=== PATIENT | male | born 1955 | race African-American/Black ===

== ENCOUNTER 2017-06-21 09:25 | Emergency (ER) | payer MEDICAID, OTHER ==
[2017-06-21 09:34] VITALS: BP 127/87
--- NOTE | 2017-06-21 09:55 | ER Document Report ---
HPI - HPI Patient complains to provider of: needs PPD read and cxr report Onset: Other - 2 days ago Pain Level: 0 Context: 61 yo male in jail had ppd and cxr 2 days ago. Was exposed, roomate had TB. Associated Symptoms: None Exacerbated by: Denies Relieved by: Denies - ROS ROS below otherwise negative: Yes Systems Reviewed and Negative: Yes All other systems reviewed and negative Past Medical History - General Information source: Friend - care give from jail Cannot obtain history due to: Mentally challenged - Social History Smoking Status: Never Smoker Frequency of alcohol use: None Drug Abuse: None Lives with: Other - jail Family History: Other - Unable to review - Past Medical History Cardiac Medical History: Reports: Hx Hypertension Surgical Hx: Negative Vertical Provider Document - CONSTITUTIONAL Agree With Documented VS: Yes Exam Limitations: No Limitations General Appearance: No Apparent Distress - INFECTION CONTROL TRAVEL OUTSIDE OF THE [place] IN LAST 30 DAYS: No - HEENT HEENT: Normocephalic - NECK Neck: Supple - RESPIRATORY O2 Sat by Pulse Oximetry: 97 - NEURO Level of Consciousness: Awake, Alert - DERM Notes: right volar forearm PPD test negative, no induration. Course - Re-evaluation Re-evalutation: 06/21/17 10:00 Outpatient x-ray done on June 19, 2017 at 2:14 PM is negative according to Dr. caputo the radiologist. Copy given to the group fitness instructor. 06/21/17 10:16 Patient was registered with the second medical record number and have asked patient access to emergent 2 medical record numbers. The chest x-ray was found under medical record [id number]., Today's visit is medical record [id number]. The V number for the visit on the was [id number]. - Vital Signs Vital signs: Temp Pulse Resp BP Pulse Ox 98.1 F 68 18 127/87 H 97 06/21/17 09:41 06/21/17 09:33 06/21/17 09:33 06/21/17 09:33 06/21/17 09:33 Discharge - Discharge Clinical Impression: Negative PPD and chest x-ray Condition: Good Disposition: HOME, SELF-CARE Additional Instructions: see your doctor for follow up Forms: Signature Page
== END 2017-06-21 10:40 | disposition home or self-care (01) ==
LOC: ER 09:25
DX: Z11.1 Encounter for screening for respiratory tuberculosis (principal); Z20.1 Contact with and (suspected) exposure to tuberculosis; I10 Essential (primary) hypertension

== ENCOUNTER → 2018-04-11 | Outpatient (CLI) | payer MEDICAID ==
--- NOTE | 2018-04-11 10:19 | RADIOLOGY REPORT (SQ) ---
EXAM DESCRIPTION: U/S ABDOMEN LIMITED W/O DOP COMPLETED DATE/TIME: 04/11/2018 10:08 am REASON FOR STUDY: K74.60 UNSPECIFIED CIRRHOSIS OF LIVER R74.8 ABNORMAL LEVELS OF OTHER SERUM K74.60 UNSPECIFIED CIRRHOSIS OF LIVER R74.8 ABNORMAL LEVELS OF OTHER SERUM ENZYMES COMPARISON: None. TECHNIQUE: Dynamic and static grayscale images acquired of the abdomen and recorded on PACS. Additio nal selected color Doppler and spectral images recorded. LIMITATIONS: None. FINDINGS: PANCREAS: No masses. Visualized pancreatic duct normal caliber. LIVER: No masses. Echotexture normal. LIVER VASCULATURE: Normal directional flow of the main portal vein and hepatic veins. GALLBLADDER: No stones. Normal wall thickness. No pericholecystic fluid. ULTRASOUND-DETECTED AQUINO'S SIGN: Negative. INTRAHEPATIC DUCTS AND COMMON DUCT: CBD and intrahepatic ducts normal caliber. No filling defects.INF ERIOR VENA CAVA: Normal flow. AORTA: No aneurysm. RIGHT KIDNEY: Normal size. Normal echogenicity. No solid or suspicious masses. No hydronephrosis. No calcifications. PERITONEAL AND RIGHT PLEURAL SPACE: No ascites or effusions. OTHER: No other significant findings. IMPRESSION: NORMAL RIGHT UPPER QUADRANT ULTRASOUND. TECHNICAL DOCUMENTATION: JOB ID: [id number] [employer]- All Rights Reserved Reading location - IP/workstation name: [email or web address]
== END ==
LOC: RAD 10:18
PROVIDERS: ATTEND Internal Medicine Gastroenterology
DX: K74.60 Unspecified cirrhosis of liver (principal); R74.8 Abnormal levels of other serum enzymes
CPT/HCPCS: 76705

== ENCOUNTER 2018-08-25 15:57 | Emergency (ER) | payer MEDICAID ==
[2018-08-25] MEDS ORDERED: NORMAL SALINE 1000 ML 1,000 ML IV ONE (17:50)
[2018-08-25] MEDS ORDERED: ONDANSETRON HCL INJ/PF 4 MG/2 ML SDV IV ONE (17:50)
--- NOTE | 2018-08-25 17:51 | ER Document Report ---
ED Medical Screen (RME) - General Chief Complaint: Nausea/Vomiting Stated Complaint: VOMITING/ABDOMINAL PAIN Primary Care Provider: PERICO MCRAE MD [Primary Care Provider] - Follow up as needed TRAVEL OUTSIDE OF THE [place] IN LAST 30 DAYS: No - HPI Notes: 08/25/18 17:49 Patient is a 62-year-old male with an extensive medical history including mental health disorder, dementia, hypertension, cirrhosis, hepatitis C who presents with caregiver complaining of abdominal distention and nausea/vomiting over the past 24 hours. Caregiver is unaware of the last bowel movement, but it could have been within the last couple days. Denies HADLEY, fever, neck pain, URI, CP, SOB, or rash. I have treated and performed a rapid initial assessment of this patient. A comprehensive ED assessment and evaluation of the patient, analysis of test results and completion of medical decision making process will be conducted by additional ED providers. PHYSICAL EXAMINATION: GENERAL: Well-appearing, well-nourished and in no acute distress. LUNGS: Breath sounds clear to auscultation bilaterally and equal. No wheezes rales or rhonchi. HEART: Regular rate and rhythm without murmurs, rubs, gallops. ABDOMEN: Soft, + mild distention. No guarding, no rebound. Normal bowel sounds present. No CVA tenderness bilaterally. (cannot elicit thorough abd exam w/o table, however). - Related Data Allergies/Adverse Reactions: valsartan [From Diovan] Allergy (Verified 08/25/18 16:05) Past Medical History - Social History Frequency of alcohol use: None Drug Abuse: None - Past Medical History Cardiac Medical History: Reports: Hx Hypertension Renal/ Medical History: Denies: Hx Peritoneal Dialysis GI Medical History: Reports: Hx Gastroesophageal Reflux Disease Musculoskeltal Medical History: Reports Hx Arthritis Psychiatric Medical History: Reports: Hx Bipolar Disorder, Hx Depression Physical Exam - Vital signs Vitals: Temp Pulse Resp BP Pulse Ox 98.4 F 96 14 121/73 95 08/25/18 16:26 08/25/18 16:26 08/25/18 16:26 08/25/18 16:26 08/25/18 16:26 Course - Vital Signs Vital signs: Temp Pulse Resp BP Pulse Ox 98.4 F 96 14 121/73 95 08/25/18 16:26 08/25/18 16:26 08/25/18 16:26 08/25/18 16:26 08/25/18 16:26 Doctor's Discharge - Discharge Referrals: PERICO MCRAE MD [Primary Care Provider] - Follow up as needed
--- NOTE | 2018-08-25 18:22 | RADIOLOGY REPORT (SQ) ---
EXAM DESCRIPTION: ACUTE ABDOMEN SERIES COMPLETED DATE/TIME: 08/25/2018 6:06 pm REASON FOR STUDY: n/v, abd distention COMPARISON: None. NUMBER OF VIEWS: Three views. TECHNIQUE: Frontal chest, supine abdomen and upright/decubitus abdomen radiographic images acquired. LIMITATIONS: None. FINDINGS: CHEST: Lungs clear of infiltrates. FREE AIR: None. No abnormal gas collections. BOWEL GAS PATTERN: No definite evidence of pathologically dilated loops of bowel. There are multiple gas fluid levels throughout the presumed colonic loops involving the transverse colon and splenic an d hepatic flexures. CALCIFICATIONS: No suspicious calcifications. HARDWARE: None in the abdomen. SOFT TISSUES: No gross mass or suggestion of organomegaly. BONES: No acute fracture. No worrisome bone lesions. OTHER: No other significant finding. IMPRESSION: Multiple gas fluid levels throughout the ascending, transverse and descending colon whic h can be seen with diarrheal illness or cathartic use. No definite evidence of intestinal obstructio n. TECHNICAL DOCUMENTATION: JOB ID: [id number] [employer]- All Rights Reserved Reading location - IP/workstation name: [email or web address]
[2018-08-25 19:07] LABS: APPEARANCE,URINE CLEAR; BILIRUBIN,URINE NEGATIVE (NEGATIVE); COLOR,URINE YELLOW; GLUCOSE, URINE NEGATIVE (NEGATIVE); KETONES,URINE NEGATIVE (NEGATIVE); LEUKOCYTE ESTERASE,URINE NEGATIVE (NEGATIVE); NITRITE,URINE NEGATIVE (NEGATIVE); PROTEIN,URINE 30 mg/dL (NEGATIVE); URINE SPECIFIC GRAVITY 1.025
[2018-08-25 19:12] LABS: ABSOLUTE LYMPHOCYTES (AUTO) 0.4 10^3/uL (0.5-4.7); ABSOLUTE MONOCYTES (AUTO) 0.6 10^3/uL (0.1-1.4); ABSOLUTE NEUT (AUTO) 4.7 10^3/uL (1.7-8.2); BASOPHILS % (AUTO) 0.2 % (0-2); EOSINOPHILS % (AUTO) 0.1 % (0-6); HEMATOCRIT 46.6 % (37.9-51.0); HEMOGLOBIN 15.6 g/dL (13.5-17.0); LYMPHOCYTES % (AUTO) 7.6 % (13-45); MEAN CORPUSCULAR HEMOGLOBIN 27.4 pg (27.0-33.4); MEAN CORPUSCULAR HGB CONC 33.5 g/dL (32.0-36.0); MEAN CORPUSCULAR VOLUME 82 fl (80-97); MONOCYTES % (AUTO) 10.4 % (3-13); PLATELET COUNT 107 10^3/uL (150-450); RED BLOOD COUNT 5.71 10^6/uL (4.35-5.55); RED CELL DISTRIBUTION WIDTH 14.7 % (11.5-14.0); SEGMENTED NEUTROPHILS % (AUTO) 81.7 % (42-78); TOTAL CELLS COUNTED % (AUTO) 100 %; WHITE BLOOD COUNT 5.8 10^3/uL (4.0-10.5)
[2018-08-25 19:32] LABS: ALANINE AMINOTRANSFERASE 40 U/L (21-72); ALBUMIN 4.8 g/dL (3.5-5.0); ALKALINE PHOSPHATASE 64 U/L (38-126); ANION GAP 11 (5-19); ASPARTATE AMINO TRANSFERASE 30 U/L (17-59); BILIRUBIN,DIRECT 0.3 mg/dL (0.0-0.4); BLOOD UREA NITROGEN 24 mg/dL (7-20); CALCIUM 9.9 mg/dL (8.4-10.2); CARBON DIOXIDE 27 mmol/L (22-30); CHLORIDE 100 mmol/L (98-107); GLUCOSE 112 mg/dL (75-110); LIPASE 55.3 U/L (23-300); POTASSIUM 4.2 mmol/L (3.6-5.0); SODIUM 137.7 mmol/L (137-145); TOTAL PROTEIN 8.8 g/dL (6.3-8.2)
--- NOTE | 2018-08-26 00:35 | RADIOLOGY REPORT (SQ) ---
EXAM DESCRIPTION: CT ABDOMEN PELVIS WITH IV CONTRAST COMPLETED DATE/TME: 08/25/2018 22:30 CLINICAL HISTORY: 62 years, Male, abdominal distension, abnormal kub COMPARISON: Ultrasound 04/11/2018 TECHNIQUE: [id number] Images stored on PACS. All CT scanners at this facility use dose modulation, iterative reconstruction, and/or weight based dosing when appropriate to reduce radiation dose to as low as reasonably achievable (ALARA). [facility]: Dose Right [facility]: CareDose [facility]: Dose Right [facility]: Teradose 4D [facility]: [employer] LIMITATIONS: None. FINDINGS: Limited evaluation of the lung bases shows minor scarring in the left lung base. Motion artifact degrades image quality. The stomach is distended and filled with food/debris. The liver, spleen, adrenal glands, pancreas are unremarkable. There are nonobstructing left renal calculi, the largest measures approximately 5 mm in size. The kidneys are otherwise unremarkable. Post surgical change of the right hip. Osseous structures are otherwise grossly intact. Large amount of stool in the colon. No gross evidence for bowel obstruction. No free air or free fluid. The appendix is not well seen however no pericecal inflammation to suggest acute appendicitis. Subjective diffuse urinary bladder wall thickening. Correlate with urinalysis. IMPRESSION: Distention of the stomach with food and debris in the stomach. Diffuse urinary bladder wall thickening is suggested. Correlate with urinalysis. Motion artifact. Nonobstructing left renal calculi. Large amount of stool in the colon. TECHNICAL DOCUMENTATION: Quality ID # [id number]: Final reports with documentation of one or more dose reduction techniques (e.g., Automated exposure control, adjustment of the mA and/or kV according to patient size, use of iterative reconstruction technique) copyright 2010 [employer]- All Rights Reserved
[2018-08-26] MEDS ORDERED: MINERAL OIL 30 ML UDCUP PR ONE (00:37)
[2018-08-26] MEDS ORDERED: LACTULOSE SYRUP 20 GM/30 ML UDCUP PO ONE (01:52)
--- NOTE | 2018-08-26 01:58 | ER Document Report ---
ED General - General Chief Complaint: Nausea/Vomiting Stated Complaint: VOMITING/ABDOMINAL PAIN Time Seen by Provider: 08/25/18 17:49 Primary Care Provider: PERICO MCRAE MD [Primary Care Provider] - Follow up in 3-5 days Cannot obtain history due to: Mentally challenged Notes: Patient is a 62-year-old male with an extensive medical history including mental health disorder, dementia, hypertension, cirrhosis, hepatitis C who presents with caregiver complaining of abdominal distention and nausea/vomiting over the past 24 hours. Caregiver is unaware of the last bowel movement, but it could have been within the last couple days. Patient himself is unable to provide any meaningful history. He has no previous history of bowel obstructions per the caregiver. He does take a daily senna but the caregiver reports that this does not seem to be helping. Has not seen a primary care physician regarding today's concerns. No fever. Has been able to tolerate oral intake intermittently. TRAVEL OUTSIDE OF THE [place] IN LAST 30 DAYS: No - Related Data Allergies/Adverse Reactions: valsartan [From Oversi] Allergy (Verified 08/25/18 16:05) Past Medical History - General Information source: Legal Guardian - Social History Smoking Status: Never Smoker Frequency of alcohol use: None Drug Abuse: None Lives with: Other - retirement Family History: Other - Unable to review Patient has suicidal ideation: No Patient has homicidal ideation: No - Past Medical History Cardiac Medical History: Reports: Hx Hypertension Renal/ Medical History: Denies: Hx Peritoneal Dialysis GI Medical History: Reports: Hx Gastroesophageal Reflux Disease Musculoskeletal Medical History: Reports Hx Arthritis Psychiatric Medical History: Reports: Hx Bipolar Disorder, Hx Depression Review of Systems - Review of Systems -: Yes ROS unobtainable due to patient's medical condition Physical Exam - Vital signs Vitals: Temp Pulse Resp BP Pulse Ox 98.4 F 96 14 121/73 95 08/25/18 16:26 08/25/18 16:26 08/25/18 16:26 08/25/18 16:26 08/25/18 16:26 Interpretation: Normal Notes: PHYSICAL EXAMINATION: GENERAL: Appears in no distress HEAD: Atraumatic, normocephalic. EYES: Pupils equal round and reactive to light, extraocular movements intact, sclera anicteric, conjunctiva are normal. ENT: nares patent, oropharynx clear without exudates. Moist mucous membranes. NECK: Normal range of motion, supple without lymphadenopathy LUNGS: Breath sounds clear to auscultation bilaterally and equal. No wheezes rales or rhonchi. HEART: Regular rate and rhythm without murmurs ABDOMEN: Soft, mild abdominal distention, nontender, normoactive bowel sounds. No guarding, no rebound. No masses appreciated. EXTREMITIES: Normal range of motion, no pitting or edema. No cyanosis. NEUROLOGICAL: No focal neurological deficits. Moves all extremities spontaneously and on command. PSYCH: Alert, states his name but is unable to respond otherwise appropriately to questions SKIN: Warm, Dry, normal turgor, no rashes or lesions noted. Course - Re-evaluation Re-evalutation: 08/26/18 01:57 Patient is a developmentally disabled 62-year-old male presenting with his cargo station worker due to concerns of nausea vomiting abdominal distention. His workup is unremarkable with exception of marketed constipation on CT with distention of the stomach. No evidence of obstruction. He has been able to tolerate oral fluids here in the emergency department. A mineral oil and soapsuds enema was administered as well as oral lactulose. He will be started on MiraLAX twice daily at home. Abdominal exam is completely benign without areas of focal tenderness, rebound or guarding. Vitals within normal limits. I do not see any indications for hospitalization or further imaging at this time. tar worker at the bedside with the patient is in agreement with management and plan. Verbalizes understanding of medication instructions. Will follow up in the next 24-48 hours this primary doctor. - Vital Signs Vital signs: Temp Pulse Resp BP Pulse Ox 98.3 F 82 16 131/87 H 99 08/25/18 21:34 08/26/18 02:27 08/25/18 21:34 08/26/18 02:27 08/26/18 02:27 - Laboratory Result Diagrams: 08/25/18 18:58 08/25/18 18:58 Laboratory results interpreted by me: 08/25/18 08/25/18 08/25/18 18:28 18:58 18:58 RBC 5.71 H RDW 14.7 H Plt Count 107 L Seg Neutrophils % 81.7 H Lymphocytes % 7.6 L Absolute Lymphocytes 0.4 L BUN 24 H Glucose 112 H Total Protein 8.8 H Urine Protein 30 H Urine Blood MODERATE H Urine Urobilinogen 2.0 H Urine Ascorbic Acid 40 H - Diagnostic Test Radiology reviewed: Reports reviewed Discharge - Discharge Clinical Impression: Constipation Qualifiers: Constipation type: unspecified constipation type Qualified Code(s): K59.00 - Constipation, unspecified Nausea and vomiting Qualifiers: Vomiting type: unspecified Vomiting Intractability: non-intractable Qualified Code(s): R11.2 - Nausea with vomiting, unspecified Condition: Good Disposition: HOME, SELF-CARE Additional Instructions: Mr. Powers symptoms appear to be coming from severe constipation. He has been given medicine and an enema here in the emergency department to try to reduce that constipation and may have a very large bowel movement in the next 24 hours. Please continue him on 1 capful of MiraLAX twice daily as this appears to be a potentially recurrent problem. His labs and CT scan are otherwise reassuring. Return if he has persistent vomiting, worsening abdominal discomfort, develops a fever of greater than 100.4 F, fails to have a bowel movement, or has any other symptoms that are worrisome to you. He should follow-up with his primary care doctor within the next 24-48 hours. Prescriptions: Polyethylene Glycol 3350 [Miralax] 1 cap PO BID #[id number] powder Referrals: PERICO MCRAE MD [Primary Care Provider] - Follow up in 3-5 days
[2018-08-26 02:29] VITALS: BP 131/87
== END 2018-08-26 02:40 | disposition home or self-care (01) ==
LOC: ER 15:57
DX: K59.00 Constipation, unspecified (principal); R11.2 Nausea with vomiting, unspecified; R10.9 Unspecified abdominal pain; R14.0 Abdominal distension (gaseous); F03.90 Unspecified dementia, unspecified severity, without behavioral disturbance, psychotic disturbance, mood disturbance, and anxiety; I10 Essential (primary) hypertension
CPT/HCPCS: 99284; 96361; 96374; 36415; 83690; 85025; 80053; 81001; 74022; 74177; J3490 ×2; J2405; J7030